=== PATIENT | male | born 1975 | race Caucasian/White ===

== ENCOUNTER 2017-10-20 09:20 | Emergency (ER) | payer SELFPAY ==
[~2017-10-20] VITALS: Ht 177.8 cm; Wt 90.0 kg
[~2017-10-20 09:20] MED LIST: AUGM500T7 PO; CLIN150 PO; IBUP600 PO; Levothyroxine Sodium PO; NICO21T TD; THERM PO
[2017-10-20 09:21] VITALS: BP 135/85; PULSE 74; RESP 16; TEMP 97.7; O2SAT 100
[2017-10-20 09:35] VITALS: BP 127/84; PULSE 76; RESP 15; TEMP 98.3; O2SAT 100
[2017-10-20] MEDS ORDERED: BUPIVACAINE HCL PF 0.5% 10 ML VIAL INFIL ONE (10:00)
[2017-10-20] MEDS ORDERED: LIDOCAINE HCL 1% 50 ML VIAL INFIL ONE (10:00)
[2017-10-20] MEDS ORDERED: CLINDAMYCIN INJ 600 MG in SODIUM CHLORIDE 0.9% INJ 100 ML IV ONE (10:00)
[2017-10-20] MEDS ORDERED: CLINDAMYCIN 600 MG/NS PREMIX 50 ML IV ONE (10:00)
[2017-10-20] MEDS ORDERED: LIDOCAINE HCL 1% PF 30 ML VIAL ONE (10:05)
--- NOTE | 2017-10-20 10:10 | PD ---
HPI Chief Complaint: Skin Problem Time Seen by Provider: 09:42 Travel History International Travel<30 days: No Contact w/Intl Traveler<30days: No Traveled to known affect area: No History of Present Illness HPI 41-year-old male presents to the emergency room for evaluation of infection to his left fourth finger that started 4 days ago. 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 States since then he has had increasing pain , swelling. Pain is worsened with any range of motion of the left fourth finger. Radiates into the hand. He has had associated swelling that started last night. He has been taking "a ton of Tylenol and ibuprofen" without any relief in symptoms. States he is not allergic to Tylenol or codeine. He reports that he had it when he got his tooth fixed and had no reaction. Last tetanus was in 2013. PFSH Past Medical History Arthritis: No Asthma: Yes Autoimmune Disease: No Blood Disorders: No Anxiety: Yes Depression: Yes Heart Rhythm Problems: No Cancer: No Cardiovascular Problems: No High Cholesterol: No Chemotherapy: No Chest Pain: No Congestive Heart Failure: No COPD: No Cerebrovascular Accident: No Diabetes: No Diminished Hearing: No Endocrine: No Gastrointestinal Disorders: Yes GERD: No Glaucoma: No Genitourinary: No Headaches: Yes Hepatitis: Yes (hep C) Hiatal Hernia: No Hypertension: No Immune Disorder: No Implanted Vascular Access Dvce: Yes (PIC LINE LEFT ARM) Kidney Stones: No Musculoskeletal: Yes (SCOLIOSIS-MINOR; DEGENERATIVE DISK DISEASE) Neurologic: Yes Psychiatric: Yes Reproductive: No Respiratory: No Immunizations Current: No Migraines: Yes Myocardial Infarction: No Radiation Therapy: No Renal Failure: No Seizures: Yes Sickle Cell Disease: No Sleep Apnea: No Thyroid Disease: No Ulcer: Yes Tetanus Vaccination: > 5 Years Influenza Vaccination: No Past Surgical History Abdominal Surgery: No AICD: No Appendectomy: No Arteriovenous Shunt: No Cardiac Surgery: No Cholecystectomy: No Ear Surgery: No Endocrine Surgery: No Eye Surgery: No Genitourinary Surgery: No Gynecologic Surgery: No Insulin Pump: No Joint Replacement: No Neurologic Surgery: Yes (LIGAMENTS REPAIRED IN LOWER BACK) Oral Surgery: No Pacemaker: No Thoracic Surgery: No Other Surgery: Yes (abcess removed from spine 04/12/09/ FX SKULL04/19/10) Social History Alcohol Use: Yes (ONCE A MONTH) Tobacco Use: Yes (1/2 PPD) 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) Allergies-Medications (Allergen,Severity, Reaction): Coded Allergies: erythromycin base (Unverified Allergy, Severe, rash, 10/20/17) naproxen (Unverified Allergy, Severe, cannot remember, 10/20/17) tree nut (Unverified Allergy, Severe, Anaphylaxis, 10/20/17) walnut (Unverified Allergy, Severe, Anaphylaxis, 10/20/17) acetaminophen (Unverified Adverse Reaction, Severe, "blurred vision", ) codeine (Unverified Adverse Reaction, Severe, Itching, 10/20/17) propoxyphene (Unverified Adverse Reaction, Severe, "blurred vision", 10/20) tramadol (Unverified Adverse Reaction, Severe, BLURRED VISION, 10/20/17) *MDRO Multi-Drug Resistant Organism (Unverified Adverse Reaction, Unknown , 10/20/17) MRSA wound 2010 Reported Meds & Prescriptions Reported Meds & Active Scripts Active No Active Prescriptions or Reported Medications Review of Systems Except as stated in HPI: all other systems reviewed are Neg Physical Exam Narrative GENERAL: Well-nourished, well-developed male in no acute distress. Afebrile. Ambulatory. SKIN: Focused skin assessment warm/dry. There is an indurated area in the left dorsal DIP which measures about 1 cm in diameter. It is fluctuant with pointing and drainage. There is no significant erythema or lymphangitis. HEAD: Normocephalic. EYES: No scleral icterus. No injection or drainage. NECK: Supple, trachea midline. No JVD or lymphadenopathy. CARDIOVASCULAR: Regular rate and rhythm without murmurs, gallops, or rubs. RESPIRATORY: Breath sounds equal bilaterally. No accessory muscle use. EXTREMITY: Left fourth finger is extremely tender to palpation especially over the DIP joint. Moderate edema of the left DIP joint, mild edema on the left hand. Range of motion secondary to pain. Less than 2 second capillary refill distally. 2+ radial pulse. Data Data Last Documented VS Vital Signs Date Time Temp Pulse Resp B/P (MAP) Pulse Ox O2 Delivery O2 Flow Rate FiO2 10/20/17 09:35 98.3 76 15 127/84 (98) 100 Room Air Orders Orders Wound Culture And Gram Stain (10/20/17 09:53) Lidocaine 1% Inj (50 Ml) (Xylocaine 1% I (10/20/17 10:00) Bupivacaine Pf 0.5% Inj (Marcaine Pf 0.5 (10/20/17 10:00) Finger ([id number]) (10/20/17 ) Clindamycin 600 Mg/Ns Premix (Cleocin 60 (10/20/17 10:00) Acetamin-Codeine 300-30 Mg (Tylenol-Code (10/20/17 10:15) Lidocaine Pf 1% Inj (Xylocaine-Mpf 1% In (10/20/17 10:05) Clindamycin Inj (Cleocin Inj) (10/20/17 10:15) Sulfamet-Trimeth Ds 800-160 Mg (Bactrim (10/20/17 10:15) MDM Medical Decision Making Medical Screen Exam Complete: Yes Emergency Medical Condition: Yes Medical Record Reviewed: Yes Differential Diagnosis Cellulitis, abscess, wound infection Narrative Course 41-year-old male presents to the emergency room for evaluation of left fourth finger pain, swelling after cutting it on a metal 4 days ago. X-ray is negative for foreign body. No systemic signs of infection. He has a small abscess over the left dorsal DIP joint. Patient has limited range of motion secondary to pain. There is moderate edema. No significant erythema. No lymphangitis. Abscess was drained, see procedure note for details. He was given IM clindamycin and Bactrim in the emergency room. Patient discharged with Bactrim and told to follow-up with a PCP return for worsening symptoms. He understands and agrees to plan. Procedures Procedure Narrative INCISION AND DRAINAGE OF ABSCESS: The area was prepped and was sterilely draped. A subcutaneous wheal of 1% lidocaine and 0.5% bupivacaine with a total number 3 mL was used to anesthetize the area properly. A [id number] scalpel was used to make a 1 cm incision across the area of the abscess. The abscess was drained, complex loculations were broken down, and irrigated with normal saline. Cultures were obtained. Sterile dressing applied. Diagnosis Primary Impression: Abscess of left ring finger Referrals: Primary Care Physician Additional Instructions: Rest and drink plenty of fluids. Take Bactrim as directed, until gone. Follow up with a primary care physician. Return to emergency room for worsening symptoms, as discussed. Scripts No Active Prescriptions or Reported Meds Disposition: 01 DISCHARGE HOME Condition: Stable Ramila Gabriel Oct 20, 2017 10:10
[2017-10-20] MEDS ORDERED: CLINDAMYCIN PHOS 600 MG/4 ML VIAL IM ONE (10:15)
[2017-10-20] MEDS ORDERED: SULFAMETHOXAZOLE-TRIMETHOPRIM DS 800-160 MG TAB PO ONE (10:15)
[2017-10-20] MEDS ORDERED: ACETAMINOPHEN/CODEINE 300 MG/30 MG TAB PO ONE (10:15)
--- NOTE | 2017-10-20 11:01 | RADRPT ---
EXAM DATE/TIME: 10/20/2017 10:29 [facility] COMPARISON: No previous studies available for comparison. INDICATIONS : Cut 4th finger at proximal interphalangeal joint with metal. Rule out foreign body. MEDICAL HISTORY : None. SURGICAL HISTORY : None. ENCOUNTER: Initial ACUITY: 4 - 6 days PAIN SCORE: 7/10 LOCATION: Left 4th finger FINDINGS: Examination of the fourth digit of the left hand demonstrates no evidence of fracture or dislocation. No radiopaque foreign bodies are seen. The soft tissues are intact. CONCLUSION: Negative for fracture or radiopaque foreign body. Gustabo Choi MD FACR on October 20, 2017 at 10:55 Board Certified Radiologist. This report was verified electronically.
[2017-10-20] MEDS ORDERED: BACT800T5 PO (11:44)
== END 2017-10-20 11:59 | disposition home or self-care (01) ==
LOC: NEPD 09:20
DX: L02.512 Cutaneous abscess of left hand (principal); S61.215A Laceration without foreign body of left ring finger without damage to nail, initial encounter; W45.8XXA Other foreign body or object entering through skin, initial encounter; F32.9 Major depressive disorder, single episode, unspecified; F41.9 Anxiety disorder, unspecified; B19.20 Unspecified viral hepatitis C without hepatic coma; M41.9 Scoliosis, unspecified; J45.909 Unspecified asthma, uncomplicated; F17.200 Nicotine dependence, unspecified, uncomplicated
CPT/HCPCS: 10060; 73140; 86403; 87070; 87186; 96372; 96374; 96376

== ENCOUNTER 2017-12-23 12:16 | Emergency (ER) | payer SELFPAY ==
[~2017-12-23] VITALS: Ht 177.8 cm; Wt 82.0 kg
[~2017-12-23 12:16] MED LIST changes: -AUGM500T7 PO; +BACT800T5 PO; -CLIN150 PO; -IBUP600 PO; -Levothyroxine Sodium PO; -NICO21T TD; -THERM PO
[2017-12-23 12:30] VITALS: BP 112/63; PULSE 75; RESP 12; TEMP 98; O2SAT 97
--- NOTE | 2017-12-23 12:43 | PD ---
HPI Chief Complaint: OD/ Ingestion Time Seen by Provider: 12:28 Travel History International Travel<30 days: No Contact w/Intl Traveler<30days: No Traveled to known affect area: No History of Present Illness HPI 42-year-old male arrives by EMS. He has a history of chronic back pain. Normally he takes 30 mg of morphine for pain control. Today he smoked marijuana and just prior to smoking the marijuana ingested 50 mg of morphine and shortly thereafter forgot he had done so and took an extra 50 mg. This was in the form of 10 mg tablets. The first ingestion was about 2 hours prior to ER arrival the second ingestion was about 45 minutes. In total the patient ingested about 100 mg. He denies any suicidal ideation. His friend called EMS. When EMS arrived the police were also there and they stated that if he did not come to the hospital they would place him under [place] act. EMS reports normal vital signs. PFSH Past Medical History Arthritis: No Asthma: Yes Autoimmune Disease: No Blood Disorders: No Anxiety: Yes Depression: Yes Heart Rhythm Problems: No Cancer: No Cardiovascular Problems: No High Cholesterol: No Chemotherapy: No Chest Pain: No Congestive Heart Failure: No COPD: No Cerebrovascular Accident: No Diabetes: No Diminished Hearing: No Endocrine: No Gastrointestinal Disorders: Yes GERD: No Glaucoma: No Genitourinary: No Headaches: Yes Hepatitis: Yes (hep C) Hiatal Hernia: No Hypertension: No Immune Disorder: No Implanted Vascular Access Dvce: Yes (PIC LINE LEFT ARM) Kidney Stones: No Musculoskeletal: Yes (SCOLIOSIS-MINOR; DEGENERATIVE DISK DISEASE) Neurologic: Yes Psychiatric: Yes Reproductive: No Respiratory: No Immunizations Current: No Migraines: Yes Myocardial Infarction: No Radiation Therapy: No Renal Failure: No Seizures: Yes Sickle Cell Disease: No Sleep Apnea: No Thyroid Disease: No Ulcer: Yes Past Surgical History Abdominal Surgery: No AICD: No Appendectomy: No Arteriovenous Shunt: No Cardiac Surgery: No Cholecystectomy: No Ear Surgery: No Endocrine Surgery: No Eye Surgery: No Genitourinary Surgery: No Gynecologic Surgery: No Insulin Pump: No Joint Replacement: No Neurologic Surgery: Yes (LIGAMENTS REPAIRED IN LOWER BACK) Oral Surgery: No Pacemaker: No Thoracic Surgery: No Other Surgery: Yes (see hx) Social History Alcohol Use: Yes (ONCE A MONTH) Tobacco Use: Yes (1/2 PPD) Substance Use: No (POT) Allergies-Medications (Allergen,Severity, Reaction): Coded Allergies: erythromycin base (Verified Allergy, Severe, rash, 12/23/17) naproxen (Verified Allergy, Severe, cannot remember, 12/23/17) tree nut (Verified Allergy, Severe, Anaphylaxis, 12/23/17) walnut (Verified Allergy, Severe, Anaphylaxis, 12/23/17) acetaminophen (Verified Adverse Reaction, Severe, "blurred vision", ) codeine (Verified Adverse Reaction, Severe, Itching, 12/23/17) propoxyphene (Verified Adverse Reaction, Severe, "blurred vision", 12/23/17 ) tramadol (Verified Adverse Reaction, Severe, BLURRED VISION, 12/23/17) *MDRO Multi-Drug Resistant Organism (Verified Adverse Reaction, Unknown, ) MRSA wound 2009 Reported Meds & Prescriptions Reported Meds & Active Scripts Active Review of Systems Except as stated in HPI: all other systems reviewed are Neg Physical Exam Narrative GENERAL: Pleasant 42-year-old male no acute distress speaking full sentences Vital Signs Date Time Temp Pulse Resp B/P (MAP) Pulse Ox O2 Delivery O2 Flow Rate FiO2 12/23/17 12:34 12 97 Nasal Cannula 2.00 12/23/17 12:30 98.0 75 12 112/63 (79) 97 SKIN: Warm and dry. HEAD: Atraumatic. Normocephalic. EYES: Pupils equal and round. No scleral icterus. No injection or drainage. ENT: No nasal bleeding or discharge. Mucous membranes pink and moist. NECK: Trachea midline. No JVD. CARDIOVASCULAR: Regular rate and rhythm. RESPIRATORY: No accessory muscle use. Clear to auscultation. Breath sounds equal bilaterally. GASTROINTESTINAL: Abdomen soft, non-tender, nondistended. Hepatic and splenic margins not palpable. MUSCULOSKELETAL: Extremities without clubbing, cyanosis, or edema. No obvious deformities. NEUROLOGICAL: And O 3. Moving all extremities normally. Normal gait. Normal speech memory and mentation. PSYCHIATRIC: No intentional overdose attempt. Data Data Last Documented VS Vital Signs Date Time Temp Pulse Resp B/P (MAP) Pulse Ox O2 Delivery O2 Flow Rate FiO2 12/23/17 12:34 12 97 Nasal Cannula 2.00 12/23/17 12:30 98.0 75 112/63 (79) VS reviewed Orders Orders Complete Blood Count With Diff (12/23/17 12:43) Comprehensive Metabolic Panel (12/23/17 12:43) Thyroid Stimulating Hormone (12/23/17 12:43) Drug Screen, Random Urine (12/23/17 12:43) Alcohol (Ethanol) (12/23/17 12:43) Salicylates (Aspirin) (12/23/17 12:43) Tylenol (Acetaminophen) (12/23/17 12:43) Labs Laboratory Tests Test 12/23/17 12:50 White Blood Count 4.8 TH/MM3 Red Blood Count 4.56 MIL/MM3 Hemoglobin 13.3 GM/DL Hematocrit 39.3 % Mean Corpuscular Volume 86.1 FL Mean Corpuscular Hemoglobin 29.1 PG Mean Corpuscular Hemoglobin Concent 33.8 % Red Cell Distribution Width 12.3 % Platelet Count 225 TH/MM3 Mean Platelet Volume 8.7 FL Neutrophils (%) (Auto) 65.4 % Lymphocytes (%) (Auto) 25.0 % Monocytes (%) (Auto) 8.7 % Eosinophils (%) (Auto) 0.7 % Basophils (%) (Auto) 0.2 % Neutrophils # (Auto) 3.1 TH/MM3 Lymphocytes # (Auto) 1.2 TH/MM3 Monocytes # (Auto) 0.4 TH/MM3 Eosinophils # (Auto) 0.0 TH/MM3 Basophils # (Auto) 0.0 TH/MM3 CBC Comment DIFF FINAL Differential Comment Blood Urea Nitrogen 19 MG/DL Creatinine 0.93 MG/DL Random Glucose 124 MG/DL Total Protein 6.4 GM/DL Albumin 3.0 GM/DL Calcium Level 8.1 MG/DL Alkaline Phosphatase 61 U/L Aspartate Amino Transf (AST/SGOT) 22 U/L Alanine Aminotransferase (ALT/SGPT) 30 U/L Total Bilirubin 0.5 MG/DL Sodium Level 138 MEQ/L Potassium Level 4.0 MEQ/L Chloride Level 106 MEQ/L Carbon Dioxide Level 26.0 MEQ/L Anion Gap 6 MEQ/L Estimat Glomerular Filtration Rate 89 ML/MIN Thyroid Stimulating Hormone 3rd Gen 0.686 uIU/ML Salicylates Level 2.1 MG/DL Acetaminophen Level LESS THAN 2.0 MCG/ML Ethyl Alcohol Level LESS THAN 3 MG/DL MDM Medical Decision Making Medical Screen Exam Complete: Yes Emergency Medical Condition: Yes Differential Diagnosis Opioid overdose, Tylenol overdose, liver injury Narrative Course Patient observed here for approximately 2-1/2 hours. No hemodynamic instability or hypoxia. The patient reports taking 90 mg of morphine daily for some time prior to decreasing the dose in keeping with pain management expectations. Despite such a large ingestion therefore the patient is considered reasonably hemodynamically stable. At approximately 315PM pt eloped from ED. Diagnosis Primary Impression: Left against medical advice Scripts No Active Prescriptions or Reported Meds Disposition: 07 AGAINST MEDICAL ADVICE Condition: Stable Jony Nagel MD Dec 23, 2017 12:43
[2017-12-23 13:05] LABS: AUTOMATED NEUTROPHIL # 3.1 TH/MM3 (1.8-7.7); BASOPHIL % 0.2 % (0.0-2.0); EOSINOPHIL % 0.7 % (0.0-4.0); HEMATOCRIT 39.3 % (39.0-51.0); HEMOGLOBIN 13.3 GM/DL (13.0-17.0); LYMPHOCYTE # 1.2 TH/MM3 (1.0-4.8); MEAN CELL VOLUME 86.1 FL (80.0-100.0); MEAN CORPUSCULAR HEMOGLOBIN 29.1 PG (27.0-34.0); MEAN CORPUSCULAR HGB CONC 33.8 % (32.0-36.0); MEAN PLATELET VOLUME 8.7 FL (7.0-11.0); MONO % 8.7 % (0.0-8.0); MONOCYTE # 0.4 TH/MM3 (0-0.9); NEUT % 65.4 % (16.0-70.0); PLATELET COUNT 225 TH/MM3 (150-450); RED BLOOD COUNT 4.56 MIL/MM3 (4.50-5.90); RED CELL DISTRIBUTION WIDTH 12.3 % (11.6-17.2); WHITE BLOOD COUNT 4.8 TH/MM3 (4.0-11.0)
[2017-12-23 13:21] LABS: AST (GOT) 22 U/L (15-37); BLOOD UREA NITROGEN 19 MG/DL (7-18); CALCIUM 8.1 MG/DL (8.5-10.1); CHLORIDE 106 MEQ/L (98-107); CREATININE 0.93 MG/DL (0.60-1.30); GLOMERULAR FILTRATION RATE 89 ML/MIN (>89); GLUCOSE,RANDOM 124 MG/DL (74-106); SODIUM (NA) 138 MEQ/L (136-145)
[2017-12-23 13:22] LABS: ALT (GPT) 30 U/L (12-78)
[2017-12-23 13:32] LABS: ACETAMINOPHEN LESS THAN 2.0 MCG/ML (10.0-30.0); ALKALINE PHOSPHATASE 61 U/L (45-117); TOTAL BILIRUBIN ADULT 0.5 MG/DL (0.2-1.0); TOTAL PROTEIN 6.4 GM/DL (6.4-8.2)
== END 2017-12-23 15:43 | disposition home or self-care (01) ==
LOC: NEPD 12:16
DX: M54.9 Dorsalgia, unspecified (principal); G89.29 Other chronic pain; T40.2X1A Poisoning by other opioids, accidental (unintentional), initial encounter; F12.10 Cannabis abuse, uncomplicated; J45.909 Unspecified asthma, uncomplicated; F41.9 Anxiety disorder, unspecified; F32.9 Major depressive disorder, single episode, unspecified; R56.9 Unspecified convulsions; Z86.19 Personal history of other infectious and parasitic diseases
CPT/HCPCS: 80053; 80307; 84443; 85025; 99283

== ENCOUNTER 2018-01-20 02:39 | Emergency (ER) | payer SELFPAY ==
[~2018-01-20] VITALS: Ht 177.8 cm; Wt 80.0 kg
[2018-01-20 02:45] VITALS: BP 145/90; PULSE 88; RESP 18; TEMP 98.4; O2SAT 98
--- NOTE | 2018-01-20 03:42 | PD ---
HPI Chief Complaint: Alcohol/Drug Intoxication Time Seen by Provider: 02:57 Travel History International Travel<30 days: No Contact w/Intl Traveler<30days: No Traveled to known affect area: No History of Present Illness HPI The patient is a 42 year old male who presents to the [facility] emergency department with a history of using heroin prior to arrival. He had not used heroin recently, according to him for the last few weeks. The patient injected the heroin and was noted by a friend to be extremely drowsy and difficult to awaken. Ambulance services were called. The patient was able to be awakened, no Narcan was administered. The patient was brought to this facility for evaluation and treatment. On review of systems, the patient is drowsy on examination and frequently falls back to sleep. The patient is on a monitor and is maintaining his airway with normal oxygen saturation. The patient denies any suicidal or homicidal ideations. He denies being depressed. He denies any thoughts of harming himself. On review of systems otherwise, the patient denies having any recent fevers, cough, congestion, neck pain, chest pain, shortness of breath, abdominal pain, vomiting, diarrhea, urinary symptoms , or neurologic symptoms. [facility] Past Medical History Narrative Medical The patient's past medical history is significant for IV drug use, hepatitis B, anxiety and depression. Arthritis: No Asthma: Yes Autoimmune Disease: No Blood Disorders: No Anxiety: Yes Depression: Yes Heart Rhythm Problems: No Cancer: No Cardiovascular Problems: No High Cholesterol: No Chemotherapy: No Chest Pain: No Congestive Heart Failure: No COPD: No Cerebrovascular Accident: No Diabetes: No Diminished Hearing: No Endocrine: No Gastrointestinal Disorders: Yes GERD: No Glaucoma: No Genitourinary: No Headaches: Yes Hepatitis: Yes (hep C) Hiatal Hernia: No Hypertension: No Immune Disorder: No Implanted Vascular Access Dvce: Yes (PIC LINE LEFT ARM) Kidney Stones: No Musculoskeletal: Yes (SCOLIOSIS-MINOR; DEGENERATIVE DISK DISEASE) Neurologic: Yes Psychiatric: Yes Reproductive: No Respiratory: No Immunizations Current: No Migraines: Yes Myocardial Infarction: No Radiation Therapy: No Renal Failure: No Seizures: Yes Sickle Cell Disease: No Sleep Apnea: No Thyroid Disease: No Ulcer: Yes Past Surgical History Narrative Surgical The patient's past surgical history is significant for low back surgery. Abdominal Surgery: No AICD: No Appendectomy: No Arteriovenous Shunt: No Cardiac Surgery: No Cholecystectomy: No Ear Surgery: No Endocrine Surgery: No Eye Surgery: No Genitourinary Surgery: No Gynecologic Surgery: No Insulin Pump: No Joint Replacement: No Neurologic Surgery: Yes (LIGAMENTS REPAIRED IN LOWER BACK) Oral Surgery: No Pacemaker: No Thoracic Surgery: No Other Surgery: Yes (see hx) Social History Alcohol Use: Yes (ONCE A MONTH) Tobacco Use: Yes (1/2 PPD) Substance Use: Yes ( pot, heroin IVDU) Allergies-Medications (Allergen,Severity, Reaction): Coded Allergies: erythromycin base (Verified Allergy, Severe, rash, 01/20/18) naproxen (Verified Allergy, Severe, cannot remember, 01/20/18) tree nut (Verified Allergy, Severe, Anaphylaxis, 01/20/18) walnut (Verified Allergy, Severe, Anaphylaxis, 01/20/18) acetaminophen (Verified Adverse Reaction, Severe, "blurred vision", ) codeine (Verified Adverse Reaction, Severe, Itching, 01/20/18) propoxyphene (Verified Adverse Reaction, Severe, "blurred vision", 01/20/18 ) tramadol (Verified Adverse Reaction, Severe, BLURRED VISION, 01/20/18) *MDRO Multi-Drug Resistant Organism (Verified Adverse Reaction, Unknown, ) MRSA wound 2009 Reported Meds & Prescriptions Reported Meds & Active Scripts Active No Active Prescriptions or Reported Medications Review of Systems Except as stated in HPI: all other systems reviewed are Neg General / Constitutional: No: Fever Eyes: No: Visual changes HENT: No: Headaches Cardiovascular: No: Chest Pain or Discomfort Respiratory: No: Shortness of Breath Gastrointestinal: No: Abdominal Pain Genitourinary: No: Dysuria Musculoskeletal: No: Pain Skin: No Rash Neurologic: Positive: Change in Mentation, Slurred Speech, No: Weakness, Focal Abnormalities, Sensory Disturbance Psychiatric: Positive: Substance Abuse, No: Depression, Suicidal Ideations, Mood Disorder, Homicidal Ideation Endocrine: No: Polydipsia Hematologic/Lymphatic: No: Easy Bruising Physical Exam Narrative General: The patient is a well-developed well-nourished male in no acute distress, drowsy on my arrival to the room, sleeping on the monitor and maintaining his O2 saturation.. Head and Neck exam: Head is normocephalic atraumatic. Eyes: EOMI, pupils are equal round and reactive to light. Nose: Midline septum with pink mucous membranes Mouth: Dentition unremarkable. Moist mucus membranes. Posterior oropharynx is not erythematous. No tonsillar hypertrophy. Uvula midline. Airway patent. Neck: No palpable lymphadenopathy. No nuchal rigidity. No thyromegaly. Cardiovascular: Regular rate and rhythm without murmurs, gallops, or rubs. No pulse deficit to the extremities on simultaneous auscultation and palpation of his radial artery. Lungs: Clear to auscultation bilaterally. No wheezes, rhonchi, or rales. Abdomen: Soft, without tenderness to palpation in all 4 quadrants of the abdomen. No guarding, rebound, or rigidity. Normal bowel sounds are audible. No tenderness on palpation of McBurney's point. Extremities: No clubbing, cyanosis, or edema. 2+ pulses in all 4 extremities. No calf tenderness on palpation. Back: No spinous process tenderness to palpation. No costovertebral angle tenderness to palpation. Neurologic Exam: Grossly nonfocal. The patient is drowsy on examination, however he is easily awakened to voice or stimulation. The patient is oriented to person, place, time, and situation. Skin Exam: No rash noted. Intact skin that is warm and dry. Data Data Last Documented VS Vital Signs Date Time Temp Pulse Resp B/P (MAP) Pulse Ox O2 Delivery O2 Flow Rate FiO2 01/20/18 02:50 86 97 Room Air 01/20/18 02:45 98.4 18 145/90 (108) Orders Orders Complete Blood Count With Diff (01/20/18 03:19) Basic Metabolic Panel (Bmp) (01/20/18 03:19) Iv Access Insert/Monitor (01/20/18 03:19) Ecg Monitoring (01/20/18 03:19) Oximetry (01/20/18 03:19) Labs Laboratory Tests Test 01/20/18 03:45 White Blood Count 9.8 TH/MM3 Red Blood Count 4.77 MIL/MM3 Hemoglobin 14.1 GM/DL Hematocrit 40.4 % Mean Corpuscular Volume 84.6 FL Mean Corpuscular Hemoglobin 29.5 PG Mean Corpuscular Hemoglobin Concent 34.8 % Red Cell Distribution Width 12.4 % Platelet Count 256 TH/MM3 Mean Platelet Volume 8.5 FL Neutrophils (%) (Auto) 67.9 % Lymphocytes (%) (Auto) 19.4 % Monocytes (%) (Auto) 12.0 % Eosinophils (%) (Auto) 0.2 % Basophils (%) (Auto) 0.5 % Neutrophils # (Auto) 6.7 TH/MM3 Lymphocytes # (Auto) 1.9 TH/MM3 Monocytes # (Auto) 1.2 TH/MM3 Eosinophils # (Auto) 0.0 TH/MM3 Basophils # (Auto) 0.0 TH/MM3 CBC Comment DIFF FINAL Differential Comment Blood Urea Nitrogen 14 MG/DL Creatinine 0.94 MG/DL Random Glucose 106 MG/DL Calcium Level 8.6 MG/DL Sodium Level 138 MEQ/L Potassium Level 3.9 MEQ/L Chloride Level 102 MEQ/L Carbon Dioxide Level 28.5 MEQ/L Anion Gap 8 MEQ/L Estimat Glomerular Filtration Rate 88 ML/MIN MDM Medical Decision Making Medical Screen Exam Complete: Yes Emergency Medical Condition: Yes Medical Record Reviewed: Yes Differential Diagnosis Opiate intoxication, versus other substance intoxication Narrative Course During the course of the patient's emergency department visit, the patient's history, examination, and differential diagnosis were reviewed with the patient. The patient was placed on a monitoring tech with oximetry and frequent blood pressure monitoring. The patient had IV access obtained and blood work sent for analysis. The patient's laboratory studies were reviewed and remarkable for a white count of 9.8, hemoglobin 14.1, platelets 256 with monocytes 12, basic metabolic profile is unremarkable. The patient will be observed in the emergency department on the monitor for any further decline in his mentation or respiratory effort/rate. Once the patient is more awake and alert the patient will be discharged home. The patient is resting comfortably and feels better, is alert and in no distress. The patient's results and examination findings were discussed with the patient. The repeat examination is unremarkable and benign. The history, exam, diagnostic testing, and current condition do not suggest any significant pathology to warrant further testing, continued ED treatment, admission, or surgical evaluation at this point. The vital signs have been stable. The patient does not have uncontrollable pain, intractable vomiting, or other significant symptoms. The patient's condition is stable and appropriate for discharge. The patient will pursue further outpatient evaluation with a primary care physician or other designated or consulting physician as indicated in the discharge instructions. The patient expressed understanding and was agreeable with this plan. Diagnosis Primary Impression: Heroin use Referrals: [facility] 2 days [facility] as needed Patient Instructions: General Instructions, Opioid Overdose (ED) Med/Other Pt SpecificInfo: Prescription(s) given Scripts Naloxone Nasal [place] (Narcan Nasal [place]) 4 Mg/Act [place] 4 MG NASAL ONCE Y for OPIOID OVERDOSE, #1 SPRAY 0 Refills Contents of 1 nasal spray as a single dose; may repeat every 2 to 3 minutes in alternating nostrils until medical assistance becomes available. Prov: Francie Sharma MD 01/20/18 Disposition: 01 DISCHARGE HOME Condition: Stable Francie Sharma MD Jan 20, 2018 03:42
[2018-01-20 03:57] LABS: AUTOMATED NEUTROPHIL # 6.7 TH/MM3 (1.8-7.7); BASOPHIL % 0.5 % (0.0-2.0); EOSINOPHIL % 0.2 % (0.0-4.0); HEMATOCRIT 40.4 % (39.0-51.0); HEMOGLOBIN 14.1 GM/DL (13.0-17.0); LYMPH % 19.4 % (9.0-44.0); LYMPHOCYTE # 1.9 TH/MM3 (1.0-4.8); MEAN CELL VOLUME 84.6 FL (80.0-100.0); MEAN CORPUSCULAR HEMOGLOBIN 29.5 PG (27.0-34.0); MEAN CORPUSCULAR HGB CONC 34.8 % (32.0-36.0); MEAN PLATELET VOLUME 8.5 FL (7.0-11.0); MONOCYTE # 1.2 TH/MM3 (0-0.9); NEUT % 67.9 % (16.0-70.0); PLATELET COUNT 256 TH/MM3 (150-450); RED BLOOD COUNT 4.77 MIL/MM3 (4.50-5.90); RED CELL DISTRIBUTION WIDTH 12.4 % (11.6-17.2); WHITE BLOOD COUNT 9.8 TH/MM3 (4.0-11.0)
[2018-01-20 04:14] LABS: BICARBONATE 28.5 MEQ/L (21.0-32.0); CALCIUM 8.6 MG/DL (8.5-10.1); CREATININE 0.94 MG/DL (0.60-1.30)
[2018-01-20] MEDS ORDERED: NALO1SPR NASAL (04:49)
[2018-01-20 06:45] VITALS: BP 120/73
== END 2018-01-20 07:00 | disposition home or self-care (01) ==
LOC: NEPE 02:39
DX: T40.1X1A Poisoning by heroin, accidental (unintentional), initial encounter (principal); J45.909 Unspecified asthma, uncomplicated; F41.9 Anxiety disorder, unspecified; F32.9 Major depressive disorder, single episode, unspecified; M41.9 Scoliosis, unspecified; R56.9 Unspecified convulsions; Z86.19 Personal history of other infectious and parasitic diseases; Z88.6 Allergy status to analgesic agent; Z88.5 Allergy status to narcotic agent
CPT/HCPCS: 80048; 85025; 99283